=== PATIENT | male | born 1955 | race Caucasian/White ===

== ENCOUNTER 2022-08-15 11:12 | Emergency (ER) | payer BC, OTHER ==
[~2022-08-15] VITALS: Ht 175.3 cm; Wt 86.0 kg
[2022-08-15 11:34] VITALS: BP 166/110
== END 2022-08-15 13:47 | disposition home or self-care (01) ==
LOC: ER 11:12
DX: M17.12 Unilateral primary osteoarthritis, left knee (principal); M25.562 Pain in left knee
CPT/HCPCS: 73564; 99283